=== PATIENT | male | born 1970 | race Two or more races ===

== ENCOUNTER 2024-09-02 16:51 | Emergency (ER) | payer BC ==
[~2024-09-02] VITALS: Ht 162.6 cm; Wt 61.2 kg
[2024-09-02 17:47] VITALS: BP 138/93; TEMP 98.5; O2SAT 100
== END 2024-09-02 18:45 | disposition home or self-care (01) ==
LOC: ER 16:54
DX: S61.214A Laceration without foreign body of right ring finger without damage to nail, initial encounter (principal); W26.8XXA Contact with other sharp object(s), not elsewhere classified, initial encounter; Y93.89 Activity, other specified; Y92.89 Other specified places as the place of occurrence of the external cause; Y99.8 Other external cause status